=== PATIENT | male | born 1955 | race Two or more races ===

== ENCOUNTER 2023-01-11 17:59 | Emergency (ER) | payer MEDICAID ==
[~2023-01-11] VITALS: Ht 165.1 cm; Wt 75.0 kg
[~2023-01-11 17:59] MED LIST: GLIP5TAB12 PO; METF-370 PO
[2023-01-11 23:48] LABS: Basophils # (auto) 0 10 ^3/uL (0-0.2); Basophils % (auto) 0.5 % (0.0-2.0); Eosinophils # (auto) 0.2 10 ^3/uL (0-0.8); Eosinophils % (auto) 2.6 % (0.0-7.0); Hematocrit 35.9 % (41.0-53.0); Hemoglobin 12.9 g/dL (13.5-17.5); Lymphocytes # (auto) 2.2 10 ^3/uL (0.4-5.4); Lymphocytes % (auto) 24.2 % (10.0-50.0); Mean Corpuscular Hemoglobin 33.2 pg (28.0-32.0); Mean Corpuscular Hgb Conc. 35.9 g/dL (32.0-36.0); Mean Corpuscular Volume 92.3 fL (80.0-100.0); Monocytes # (auto) 0.7 10 ^3/uL (0-1.3); Monocytes % (auto) 7.3 % (0.0-12.0); Neutrophils # (auto) 5.9 10 ^3/uL (1.6-8.6); Neutrophils % (auto) 65.4 % (37.0-80.0); Red Blood Cells 3.89 10^6/uL (4.5-5.90); Red Cell Distribution Width 13.9 % (11.8-14.3); White Blood Cell 9.1 10^3/uL (4.4-10.8)
[2023-01-12 00:03] LABS: Albumin 3.4 g/dL (3.4-5.0); BUN/Creatinine Ratio 37.3; Calcium 8.9 mg/dL (8.5-10.1); Potassium 3.5 mmol/L (3.5-5.1)
[2023-01-12 00:06] LABS: Bilirubin, Total 0.5 mg/dL (0.2-1.0); Total Protein 7.7 g/dL (6.4-8.2)
[2023-01-12] MEDS ORDERED: SILV1CRE98 EX (01:07)
[2023-01-12] MEDS ORDERED: MUPI2CRE17 EX (01:07)
[2023-01-12 01:51] VITALS: BP 116/77
== END 2023-01-12 01:55 | disposition home or self-care (01) ==
LOC: ER 18:04
DX: T24.101A Burn of first degree of unspecified site of right lower limb, except ankle and foot, initial encounter (principal); T86.828 Other complications of skin graft (allograft) (autograft); E11.9 Type 2 diabetes mellitus without complications; F15.10 Other stimulant abuse, uncomplicated; X08.8XXA Exposure to other specified smoke, fire and flames, initial encounter; Y93.89 Activity, other specified; Y92.89 Other specified places as the place of occurrence of the external cause; Y99.8 Other external cause status
CPT/HCPCS: 36415; 80053; 82962; 85025

== ENCOUNTER 2023-01-22 14:38 | Emergency (ER) | payer MEDICAID ==
[~2023-01-22] VITALS: Ht 165.1 cm; Wt 80.0 kg
[~2023-01-22 14:38] MED LIST changes: +MUPI2CRE17 EX; +SILV1CRE98 EX
[2023-01-22] MEDS ORDERED: MORPHINE SULFATE 4 MG/ML SYR/VIAL IV ONE (15:45)
[2023-01-22] MEDS ORDERED: ONDANSETRON HCL 4 MG/2 ML VIAL IV ONE (15:45)
[2023-01-22 16:38] LABS: Basophils # (auto) 0.1 10 ^3/uL (0-0.2); Basophils % (auto) 1.1 % (0.0-2.0); Eosinophils # (auto) 0.2 10 ^3/uL (0-0.8); Hemoglobin 12.7 g/dL (13.5-17.5); Lymphocytes # (auto) 1.8 10 ^3/uL (0.4-5.4); Lymphocytes % (auto) 28.4 % (10.0-50.0); Mean Corpuscular Hgb Conc. 35.2 g/dL (32.0-36.0); Monocytes # (auto) 0.5 10 ^3/uL (0-1.3); Monocytes % (auto) 7.9 % (0.0-12.0); Neutrophils # (auto) 3.8 10 ^3/uL (1.6-8.6); Neutrophils % (auto) 59.6 % (37.0-80.0); Nucleated Red Blood Cells % 0.1 %; Red Blood Cells 3.96 10^6/uL (4.5-5.90); Red Cell Distribution Width 13.7 % (11.8-14.3); White Blood Cell 6.4 10^3/uL (4.4-10.8)
[2023-01-22 16:57] LABS: Albumin 3.3 g/dL (3.4-5.0); BUN/Creatinine Ratio 21.3; Calcium 8.9 mg/dL (8.5-10.1); Potassium 3.9 mmol/L (3.5-5.1)
[2023-01-22 17:00] LABS: Bilirubin, Total 0.5 mg/dL (0.2-1.0); Total Protein 7.7 g/dL (6.4-8.2)
[2023-01-22] MEDS ORDERED: HYDR-4798 PO (17:38)
[2023-01-22] MEDS ORDERED: MORPHINE SULFATE 4 MG/ML SYR/VIAL IM ONE (18:15)
[2023-01-22] MEDS ORDERED: ONDANSETRON ODT 4 MG TAB PO ONE (18:15)
[2023-01-22 19:23] VITALS: BP 130/99
== END 2023-01-22 19:24 | disposition home or self-care (01) ==
LOC: ER 14:38
DX: T24.301D Burn of third degree of unspecified site of right lower limb, except ankle and foot, subsequent encounter (principal); M79.604 Pain in right leg; E11.9 Type 2 diabetes mellitus without complications; Z79.84 Long term (current) use of oral hypoglycemic drugs; Z79.899 Other long term (current) drug therapy; X08.8XXD Exposure to other specified smoke, fire and flames, subsequent encounter
CPT/HCPCS: 36415; 80053; 83605; 85025; 96372; 99283; J2270; Q0162

== ENCOUNTER 2023-01-29 00:30 | Inpatient (IN) | payer MEDICAID ==
[~2023-01-29] VITALS: Ht 165.1 cm; Wt 75.6 kg
[~2023-01-29 00:30] MED LIST changes: +HYDR-4798 PO
[2023-01-29] MEDS ORDERED: SODIUM CHLORIDE 0.9% 1,000 ML IV ONE (01:00)
[2023-01-29] MEDS ORDERED: HYDROcodone-ACET 10/325MG TAB PO ONE (01:00)
[2023-01-29 01:33] LABS: Basophils # (auto) 0 10 ^3/uL (0-0.2); Basophils % (auto) 0.6 % (0.0-2.0); Eosinophils # (auto) 0.1 10 ^3/uL (0-0.8); Eosinophils % (auto) 1.5 % (0.0-7.0); Hematocrit 37.8 % (41.0-53.0); Hemoglobin 13.5 g/dL (13.5-17.5); Lymphocytes # (auto) 1.8 10 ^3/uL (0.4-5.4); Lymphocytes % (auto) 21.1 % (10.0-50.0); Mean Corpuscular Hemoglobin 32.4 pg (28.0-32.0); Mean Corpuscular Hgb Conc. 35.8 g/dL (32.0-36.0); Mean Corpuscular Volume 90.3 fL (80.0-100.0); Monocytes # (auto) 0.8 10 ^3/uL (0-1.3); Monocytes % (auto) 9.1 % (0.0-12.0); Neutrophils # (auto) 5.6 10 ^3/uL (1.6-8.6); Neutrophils % (auto) 67.7 % (37.0-80.0); Red Blood Cells 4.18 10^6/uL (4.5-5.90); Red Cell Distribution Width 13.1 % (11.8-14.3); White Blood Cell 8.3 10^3/uL (4.4-10.8)
[2023-01-29 01:55] LABS: Albumin 3.7 g/dL (3.4-5.0); BUN/Creatinine Ratio 23.9 (10.0-20.0); Calcium 8.9 mg/dL (8.5-10.1); Magnesium 1.9 mg/dL (1.6-2.6); Potassium 3.6 mmol/L (3.5-5.1)
[2023-01-29 01:57] LABS: Bilirubin, Total 0.6 mg/dL (0.2-1.0); Lactic Acid w/Reflex 2.3 mmol/L (0.4-2.0); Total Protein 7.4 g/dL (6.4-8.2)
[2023-01-29] MEDS ORDERED: TEMAZEPAM 15 MG CAP PO PRN (02:30)
[2023-01-29] MEDS ORDERED: DEXTROSE (50%) 50ML SYRG IV PRN (02:30)
[2023-01-29] MEDS ORDERED: ACETAMINOPHEN 325 MG TAB PO PRN (02:30)
[2023-01-29] MEDS ORDERED: ONDANSETRON HCL 4 MG/2 ML VIAL IV PRN (02:30)
[2023-01-29] MEDS: MORPHINE SULFATE INJ 2 MG/ml SYRG IV PRN ×3 (05:41→20:37)
[2023-01-29] MEDS ORDERED: CLINDAMYCIN 600MG IV 50 ML IV SCH (06:00)
[2023-01-29] MEDS: ACCU-CHEK COMFORT CURVE STRIP VI SCH ×4 (06:23→22:35)
[2023-01-29] MEDS: InsuLIN REG 1unit/0.01ml Soln (100units/ml) SC SCH ×4 (06:29→22:36)
[2023-01-29] MEDS: CLINDAMYCIN 300MG IV 100 ML IV SCH ×3 (08:22→22:40)
[2023-01-29] MEDS: HYDROcodone-ACET 5/325MG TAB PO PRN ×3 (09:15→23:47)
[2023-01-29 09:37] LABS: Urine Bacteria FEW /hpf (None Seen); Urine Blood Negative /uL (Negative); Urine Hyaline Cast FEW /lpf (0 - 2); Urine Mucus FEW (None Seen); Urine Specific Gravity 1.042 (1.001-1.035); Urine WBC 3 /hpf (0 - 3)
[2023-01-29] MEDS: ENOXAPARIN SOD 40 MG/0.4 ML SYRINGE SC SCH (11:11)
[2023-01-29] MEDS: SILVER SULFADIAZINE 1 % TOPICAL CREAM 50GM TOP SCH (11:11)
[2023-01-29] MEDS ORDERED: cefTRIAXone 1GM/50ML D5W 50 ML IV ONE (11:45)
[2023-01-29 12:02] VITALS: BP 134/95
[2023-01-29 12:41] VITALS: BP 134/95
[2023-01-29 14:37] VITALS: BP 134/95
[2023-01-29 17:00] VITALS: BP 153/89
[2023-01-29 22:00] VITALS: BP 147/78
[2023-01-30 05:00] VITALS: BP 139/85
[2023-01-30] MEDS: MORPHINE SULFATE INJ 2 MG/ml SYRG IV PRN ×2 (05:15→20:26)
[2023-01-30 05:47] LABS: Basophils # (auto) 0.1 10 ^3/uL (0-0.2); Eosinophils # (auto) 0.1 10 ^3/uL (0-0.8); Eosinophils % (auto) 1.5 % (0.0-7.0); Lymphocytes # (auto) 2.1 10 ^3/uL (0.4-5.4); Lymphocytes % (auto) 22.6 % (10.0-50.0); Monocytes # (auto) 0.8 10 ^3/uL (0-1.3); Neutrophils # (auto) 6.2 10 ^3/uL (1.6-8.6); Red Cell Distribution Width 13.2 % (11.8-14.3)
[2023-01-30 05:50] LABS: Basophils % (auto) 0.6 % (0.0-2.0); Hematocrit 37.6 % (41.0-53.0); Hemoglobin 13.6 g/dL (13.5-17.5); Mean Corpuscular Hemoglobin 32.1 pg (28.0-32.0); Mean Corpuscular Hgb Conc. 36.2 g/dL (32.0-36.0); Mean Corpuscular Volume 88.5 fL (80.0-100.0); Monocytes % (auto) 8.9 % (0.0-12.0); Neutrophils % (auto) 66.4 % (37.0-80.0); Nucleated Red Blood Cells % 0.1 %; Red Blood Cells 4.24 10^6/uL (4.5-5.90); White Blood Cell 9.3 10^3/uL (4.4-10.8)
[2023-01-30 06:03] LABS: BUN/Creatinine Ratio 24.1 (10.0-20.0); Calcium 8.9 mg/dL (8.5-10.1); Potassium 3.4 mmol/L (3.5-5.1)
[2023-01-30] MEDS: ACCU-CHEK COMFORT CURVE STRIP VI SCH ×4 (06:40→21:19)
[2023-01-30] MEDS: CLINDAMYCIN 300MG IV 100 ML IV SCH ×3 (06:40→23:17)
[2023-01-30] MEDS: InsuLIN REG 1unit/0.01ml Soln (100units/ml) SC SCH ×4 (06:48→21:35)
[2023-01-30 08:00] VITALS: BP 151/99
[2023-01-30 08:15] VITALS: BP 151/99
[2023-01-30] MEDS: cefTRIAXone 1GM/50ML D5W 50 ML IV SCH (09:12)
[2023-01-30] MEDS: HYDROcodone-ACET 5/325MG TAB PO PRN ×2 (09:17→18:16)
[2023-01-30] MEDS: ENOXAPARIN SOD 40 MG/0.4 ML SYRINGE SC SCH (10:04)
[2023-01-30 13:00] VITALS: BP 145/85
[2023-01-30] MEDS ORDERED: MORPHINE SULFATE 4 MG/ML SYR/VIAL IV PRN (13:00)
[2023-01-30] MEDS ORDERED: DAKINS QUARTER STR 0.125% (NaHypochlorite) 473 ML TOPICAL SOL TOP ONE (13:00)
[2023-01-30] MEDS: SILVER SULFADIAZINE 1 % TOPICAL CREAM 50GM TOP SCH (13:09)
[2023-01-30 17:25] VITALS: BP 133/92
[2023-01-30 22:00] VITALS: BP 139/92
[2023-01-30] MEDS: MORPHINE SULFATE 4 MG/ML SYR/VIAL IV PRN (23:18)
[2023-01-30] MEDS: DAKINS QUARTER STR 0.125% (NaHypochlorite) 473 ML TOPICAL SOL TOP SCH (23:49)
[2023-01-31] MEDS: MORPHINE SULFATE INJ 2 MG/ml SYRG IV PRN ×2 (03:07→09:40)
[2023-01-31 05:00] VITALS: BP 127/59
[2023-01-31] MEDS: ACCU-CHEK COMFORT CURVE STRIP VI SCH ×3 (06:53→17:00)
[2023-01-31] MEDS: CLINDAMYCIN 300MG IV 100 ML IV SCH ×2 (06:53→15:36)
[2023-01-31] MEDS: InsuLIN REG 1unit/0.01ml Soln (100units/ml) SC SCH ×3 (06:58→17:00)
[2023-01-31] MEDS: HYDROcodone-ACET 5/325MG TAB PO PRN (06:58)
[2023-01-31 09:00] VITALS: BP 114/63
[2023-01-31] MEDS ORDERED: CLIN300C8 PO (09:07)
[2023-01-31] MEDS ORDERED: HYDR-4902 PO (09:07)
[2023-01-31] MEDS ORDERED: CEPH500C PO ×2 (09:07)
[2023-01-31] MEDS ORDERED: LEVO500T31 PO (09:11)
[2023-01-31] MEDS: cefTRIAXone 1GM/50ML D5W 50 ML IV SCH (09:39)
[2023-01-31] MEDS: ENOXAPARIN SOD 40 MG/0.4 ML SYRINGE SC SCH (09:39)
[2023-01-31] MEDS: DAKINS QUARTER STR 0.125% (NaHypochlorite) 473 ML TOPICAL SOL TOP SCH (09:44)
[2023-01-31] MEDS: SILVER SULFADIAZINE 1 % TOPICAL CREAM 50GM TOP SCH (09:47)
[2023-01-31 12:19] VITALS: BP 114/64
[2023-01-31] MEDS ORDERED: hydrALAZINE HCL 25 MG TAB PO ONE (12:45)
[2023-01-31 13:18] VITALS: BP 117/74
[2023-01-31] MEDS: MORPHINE SULFATE 4 MG/ML SYR/VIAL IV PRN (13:54)
[2023-01-31 17:00] VITALS: BP 115/66
== END 2023-01-31 20:47 | disposition home or self-care (01) | DRG 383 ==
LOC: ER 00:30 → OVERFLOW 02:27 → CENTRAL 11:47
PROVIDERS: ADMIT Nurse Practitioner; ATTEND Family Medicine
PROC: 05HB33Z Insertion of Infusion Device into Right Basilic Vein, Percutaneous Approach (ICD-10-PCS; principal; 2023-01-30)
PROC: B54MZZA Ultrasonography of Right Upper Extremity Veins, Guidance (ICD-10-PCS; 2023-01-30)
DX: L03.115 Cellulitis of right lower limb (principal); E11.9 Type 2 diabetes mellitus without complications; Z59.00 Homelessness unspecified; Z83.3 Family history of diabetes mellitus; Z82.49 Family history of ischemic heart disease and other diseases of the circulatory system
CPT/HCPCS: 36415; 71045; 80048; 80053; 81001; 82962; 83036; 83605; 83735; 83880; 84484; 85025; 85652; 87040; 87077; 87186; 87205; 93925; G0378; J0696; J1815; J3490